=== PATIENT | male | born 1955 | race Caucasian/White ===

== ENCOUNTER 2016-11-15 13:05 | Inpatient (IN) | payer OTHER, SELFPAY ==
--- NOTE | ~2016-11-15 | DS ---
Discharge Summary [facility] [address] [facility] [place]. [address] NAME: PATY LOPEZ : 53 STATUS : ADM IN PAT#: [id number] AGE: 61 ADM/REG DATE : 11/15/16 MR#: [id number] REPORT SERV DATE: 11/18/16 DICTATED BY: ISAAC LIVINGSTON DATE: 11/18/16 REPORT STATUS : Draft TRANSCRIBED BY: MODL DATE: 11/18/16 ADMISSION DATE: 11/15/2016 DISCHARGE DATE: 11/18/2016 CHIEF COMPLAINT: Fever and chills. DISCHARGING DIAGNOSES: 1. Abdominal wall cellulitis likely due to strep. 2. Sepsis due to abdominal wall cellulitis. 3. CKD stage 2/3. 4. Obstructive sleep apnea. 5. Morbid obesity with BMI of 56. 6. History of chronic lymphedema with lower extremity cellulitis with history of methicillin-resistant Staphylococcus aureus. 7. Superficial thrombophlebitis. 8. Chronic back pain. HISTORY OF PRESENT ILLNESS: Please see full H and P by Dr. Stevens for details regarding initial presentation. HOSPITAL COURSE: 1. Abdominal wall cellulitis with sepsis. The patient was admitted to the hospital, seen by Infectious Disease. Antibiotics changed to Ancef and by hospital day #3, the cellulitis had completely resolved. He was treated with Ancef for an additional day and will go home with Duricef an additional 4 days after discharge. He will follow up with primary care and Dr. Chaudhary at previous outpatient regimen. Resume previous suppressive penicillin after completion of Duricef. 2. Chronic kidney disease, this is grossly stable this admission with a creatinine of 1.4 which is slightly up from his baseline. Lisinopril was held here, can resume as an outpatient. Follow up with primary care. 3. Obstructive sleep apnea with morbid obesity. Continue CPAP. 4. Thrombocytopenia, this is mild, likely related to infection. Currently trending up at platelet count of 95. Recommend outpatient followup with primary care to ensure that this is resolving. Again suspect this is due to infection as platelets were 103 on admission. 5. Hypomagnesemia. This was repleted per protocol. Follow up with primary care. 6. Diabetes. Continue outpatient regimen. Last A1c on 11/16/2016, was 8.8. Recommend to follow up with primary care for further management of better glucose control. LABORATORY DATA: New laboratory data prior to discharge, last WBC 4.7, hemoglobin 13.5, and platelet count of 95. BMP: Serum sodium 140, potassium 4, chloride 107, carbon dioxide 26, BUN 19, creatinine 1.41, magnesium 1.5, and calcium 8.7. DISPOSITION: Home. DISCHARGE MEDICATIONS: Are the same as admission with the addition of Duricef 1 g p.o. Discharge Summary [address] [address] NAME: PATY LOPEZ : 53 STATUS : ADM IN PAT#: [id number] AGE: 61 ADM/REG DATE : 11/15/16 MR#: [id number] REPORT SERV DATE: 11/18/16 DICTATED BY: ISAAC LIVINGSTON DATE: 11/18/16 REPORT STATUS : Draft TRANSCRIBED BY: MARIANA DATE: 11/18/16 b.i.d. for 4 additional days. Time spent on discharge greater than 30 minutes. DNK/MODL Isaac Livingston MD / [id number] CC: MD Rohith Marques M.D.
--- NOTE | ~2016-11-15 | HP ---
History And Physical [address] [place]. [address] NAME: PATY LOPEZ : 53 STATUS : ADM IN [facility]#: [id number] AGE: 61 ADM/REG DATE : 11/15/16 MR#: [id number] REPORT SERV DATE: 11/15/16 DICTATED BY: FRANSISCO BELL DATE: 11/15/16 REPORT STATUS : Draft TRANSCRIBED BY: MARIANA DATE: 11/15/16 DATE OF ADMISSION: 11/15/2016 CHIEF COMPLAINT: Fever or chills. HISTORY OF PRESENT ILLNESS: This is a 61 years old male with a past medical history of an MRSA and with lower extremity cellulitis in the past and followed by Dr. Lang Chaudhary, Infectious Diseases specialist and currently on suppressive/prophylactic medication with penicillin. The patient states that he has had some intermittent abdominal cellulitis and was given an extra antibiotic as an outpatient by Dr. Chaudhary approximately two to three weeks ago, which resolved. However, this morning, the patient developed acute onset of fever and chills with myalgias. He was seen by Dr. Fowler, his sales merchandiser, this morning and was referred to the emergency department. He also has some mild shortness of breath with cough. Positive sore throat. Denies any nasal congestion. No chest pain. The only sick contact was a grandchild, who had a sinus infection. Upon arrival to the ER, he was seen by Dr. Matt and found to have abdominal erythema with increased warmth. His influenza swab was initially negative. He was given a dose of IV vancomycin and the hospitalist was called to admit the patient into the hospital. REVIEW OF SYSTEMS: Please refer to HPI. PAST MEDICAL HISTORY: Lower extremity cellulitis, recurrent; history of MRSA; venous stasis dermatitis; type 2 diabetes; lymphedema; hypertension; morbid obesity; superficial thrombophlebitis; obstructive sleep apnea; chronic back pain; and a kidney nodule per patient. PAST SURGICAL HISTORY: Right heel and left heel surgery. FAMILY HISTORY: Hypertension, type 2 diabetes. SOCIAL HISTORY: Quit tobacco abuse. No illicit drugs. is currently at bedside. ALLERGIES: SULFA, CODEINE, METHADONE. HOME MEDICATIONS: Albuterol p.r.n., ascorbic acid p.o. daily, baclofen 20 mg p.o. t.i.d., benazepril 5 mg p.o. daily, Symbicort 160/4.5 two puffs inhaled daily, Bumex 2 mg p.o. daily p.r.n., FiberCon two tabs p.o. daily, cholecalciferol 2000 units p.o. daily, vitamin B12 1000 mcg sublingual daily, [place] 10/325 one tab p.o. four times a day scheduled, Humalog 75/25 60 units subcu with breakfast and supper and 40 units subcu with lunch, Prilosec 20 mg p.o. b.i.d., penicillin VK 500 mg p.o. b.i.d., Phenergan 25 mg p.o. q.6 hours p.r.n., Requip 0.5 mg p.o. at bedtime p.r.n., stool softener, Zocor 10 mg p.o. at bedtime, senna two tabs p.o. b.i.d. PHYSICAL EXAMINATION: VITAL SIGNS: Temperature 101, blood pressure 129/47 and repeat check with a blood pressure History And Physical [address] [address] NAME: PATY LOPEZ : 53 STATUS : ADM IN [facility]#: [id number] AGE: 61 ADM/REG DATE : 11/15/16 MR#: [id number] REPORT SERV DATE: 11/15/16 DICTATED BY: FRANSISCO BELL DATE: 11/15/16 REPORT STATUS : Draft TRANSCRIBED BY: MODL DATE: 11/15/16 of 131/64 with a pulse of 92, respiration of 18, and saturating 95%. GENERAL: The patient is alert and oriented, but restless due to discomfort. Morbid obesity. NECK: Supple. HEENT: Pupils equal, round, and reactive to light. Extraocular muscles are intact with mild bilateral conjunctival redness. No drainage. Dry mucous membranes. CARDIOVASCULAR: S1, S2. Regular rate and rhythm. No rubs, gallops. No JVD. RESPIRATORY: Clear to auscultation bilaterally. No wheezes or crackles. No signs of tachypnea. ABDOMEN: Positive bowel sounds. Soft, obese with erythema of the abdomen below the umbilicus from anterior tracking posterior with increased warmth at the site. EXTREMITIES: Lower extremities with some lymphedema. No appreciated erythema of the lower extremities. NEURO: Cranial nerves 2 through 12 grossly intact. Moves all four extremities. No neuro focal deficits. IMAGING: Chest x-ray with no acute infiltrate. LABORATORY DATA: Sodium 143, potassium 4.3 with a chloride of 109, bicarb of 26, BUN 15, creatinine of 1.47 with a glucose of 227. Total bilirubin of 1.1, alkaline phosphatase 114, ALT of 40, AST of 50. Troponin less than 0.02. White count of 8.9 with a hemoglobin of 14.2, platelet count 103. Influenza swab negative. UA negative. ASSESSMENT AND PLAN: 1. Systemic inflammatory response syndrome. 2. Cellulitis. 3. Acute kidney injury. 4. History of type 2 diabetes. 5. History of obstructive sleep apnea. 6. History of hypertension. 7. Morbid obesity. I will follow up with pending blood cultures. Also, we will continue with IV antibiotics considering the patient has a history of recurrent MRSA infections in the past. We will continue with IV vancomycin, however, also must consider a possible underlying strep infection, therefore we will continue with Rocephin as well. Also, we will check strep swab and repeat influenza swab in case of a poor outflow application of testing. Also we will continue with gentle hydration and follow up with pending labs, and also, we will consult Dr. Lang Chaudhary who is well familiar with this patient. [facility]/MARIANA Fransisco Bell M.D. History And Physical [address] [address] NAME: PATY LOPEZ : 53 STATUS : ADM IN [facility]#: [id number] AGE: 61 ADM/REG DATE : 11/15/16 MR#: [id number] REPORT SERV DATE: 11/15/16 DICTATED BY: FRANSISCO BELL DATE: 11/15/16 REPORT STATUS : Draft TRANSCRIBED BY: PRASAD DATE: 11/15/16 / [id number] CC: Shin Brooks M.D. Mark Anderson, M.D. Riccardo Fowler M.D.
[2016-11-15 11:43] LABS: BASOPHILS 0.1 %; BASOPHILS ABSOLUTE 0.01 10/3/uL (0.0-0.16); EOSINOPHILS 0.3 %; EOSINOPHILS ABSOLUTE 0.03 10/3/uL (0.0-0.53); IMMATURE GRANULOCYTES 0.2 %; IMMATURE GRANULOCYTES ABSOLUTE 0.02 10/3/uL (0.0-0.11); LYMPHOCYTES 3.3 %; LYMPHOCYTES ABSOLUTE 0.29 10/3/uL (0.67-4.30); MEAN CORPUS HGB CONC 34.1 g/dL (32.0-36.0); MEAN PLATELET VOLUME 10.4 fL (9.2-13.0); MONOCYTES 4.4 %; MONOCYTES ABSOLUTE 0.39 10/3/uL (0.21-1.20); NEUTROPHILS 91.7 %; NEUTROPHILS ABSOLUTE 8.11 10/3/uL (2.02-8.40); RBC DISTRIBUTION WIDTH 15.9 % (12.0-16.0)
[2016-11-15 11:46] LABS: ER CBC TAT 0 Hrs 09 Mins; HEMATOCRIT 41.6 % (40.0-51.0); HEMOGLOBIN 14.2 g/dL (13.6-17.8); MANUAL DIFF NO %; MEAN CORPUSCULAR VOLUME 87.8 fL (80-100); PLATELET COUNT 103 10/3/uL (150-400); RED CELL COUNT 4.74 10/6/uL (4.7-6.1); WHITE BLOOD CELLS 8.9 10/3/uL (4.5-10.5)
[2016-11-15 11:57] LABS: BUN (BLOOD UREA NITROGEN) 15 MG/DL (6-23); CALCIUM, SERUM 9.1 MG/DL (8.5-10.4); CHLORIDE, SERUM 109 MMOL/L (96-112); CO2 (CARBON DIOXIDE) 26 MMOL/L (24-34); CREATININE 1.47 MG/DL (0.70-1.30); GFR AFRICAN AMERICAN 58 ML/MIN (>=60); GFR NON AFRICAN AMERICAN 50 ML/MIN (>=60); POTASSIUM, SERUM 4.3 MMOL/L (3.5-5.3); SGOT(AST) 50 U/L (5-40); SGPT(ALT) 40 U/L (5-65); SODIUM, SERUM 143 MMOL/L (135-148); TOTAL BILIRUBIN 1.1 MG/DL (0-1.2); TOTAL PROTEIN 6.7 G/DL (6.0-8.5)
[2016-11-15 11:58] LABS: A/G RATIO 0.8 (0.7-1.9); ALKALINE PHOSPHATASE 114 U/L (45-117); GLOBULIN 3.7 G/DL (2.5-4.1); GLUCOSE, SERUM 227 MG/DL (60-99)
[2016-11-15 11:59] LABS: LACTATE 1.7 MMOL/L (0.3-2.4)
[2016-11-15 12:21] LABS: INFLUENZA A SCREEN NEGATIVE (NEGATIVE); INFLUENZA B SCREEN NEGATIVE (NEGATIVE)
[2016-11-15 12:30] LABS: ASCORBIC ACID (UR NOT ORDER) NEG (NEG); BILIRUBIN, URINE NEGATIVE (NEG); ER URINALYSIS TAT 0 Hrs 15 Mins; KETONE, URINE NEGATIVE (NEG); LEUKOCYTE ESTERASE(NOT OR NEG (NEG); NITRITE (URINE) NEG (NEG); WBC (NOT ORDERED) (RFLEX) < 1 (0-5)
[~2016-11-15 13:05] MED LIST: BACLOFEN20 MG PO; BREO ELLIPTA INH; BUM2 PO; DIABETA5 PO; DSS PO; DURICEF PO; FIBER CHOICE PO; HUMALOGMIX SC; K500 PO; L80 PO; LOTE5 PO; NORCO1 TAB PO; OCEAN NAS; P20 PO; PERI-COLACE1 TAB PO; PR25 PO; PRILO PO; PROAIR HFA INH; PROAIRRESP INH; REQUIP25 PO; REQUIP5 PO; TRESIBA INSULIN SC; VICTOZA18 MG/3 ML SC; VITAMIN D2000 UNIT PO; VITC500 PO; Z-PAK PO; ZOCOR10 PO; [UNRECOGNIZED DRUG - OTHER] PO
[2016-11-15] MEDS ORDERED: HUMALOGMIX SC ×2 (13:54)
[2016-11-15] MEDS ORDERED: NORCO1 TAB PO (13:55)
[2016-11-15] MEDS ORDERED: BACLOFEN20 MG PO (13:55)
[2016-11-15] MEDS ORDERED: PRILO PO (13:55)
[2016-11-15] MEDS ORDERED: ZOCOR10 PO (13:55)
[2016-11-15] MEDS ORDERED: LOTE5 PO (13:58)
[2016-11-15] MEDS ORDERED: BUM2 PO (13:58)
[2016-11-15] MEDS ORDERED: PR25 PO (13:59)
[2016-11-15] MEDS ORDERED: SYMBICORT 160/41 INH INH (13:59)
[2016-11-15] MEDS ORDERED: PROAIRRESP INH (13:59)
[2016-11-15] MEDS ORDERED: FIBERCON PO (14:01)
[2016-11-15] MEDS ORDERED: REQUIP5 PO (14:01)
[2016-11-15] MEDS ORDERED: PERI-COLACE1 TAB PO (14:02)
[2016-11-15] MEDS ORDERED: VITAMIN D31000 UNIT PO (14:03)
[2016-11-15] MEDS ORDERED: VITC500 PO (14:03)
[2016-11-15] MEDS ORDERED: STOOL SOFTENER OTC PO (14:03)
[2016-11-15] MEDS ORDERED: VITAMIN B-121000 MC1 SL (14:03)
[2016-11-15] MEDS ORDERED: PENICILLN VK500 MG PO (14:09)
[2016-11-15 15:47] LABS: PROCALCITONIN 0.17 ng/mL (<0.5)
[2016-11-15 17:34] LABS: INFLUENZA A SCREEN NEGATIVE (NEGATIVE); INFLUENZA B SCREEN NEGATIVE (NEGATIVE)
[2016-11-16 06:18] LABS: A/G RATIO 0.8 (0.7-1.9); ALBUMIN 2.6 G/DL (3.5-5.0); ALKALINE PHOSPHATASE 85 U/L (45-117); BASOPHILS 0.1 %; BASOPHILS ABSOLUTE 0.01 10/3/uL (0.0-0.16); BUN (BLOOD UREA NITROGEN) 20 MG/DL (6-23); CALCIUM, SERUM 8.5 MG/DL (8.5-10.4); CHLORIDE, SERUM 108 MMOL/L (96-112); CO2 (CARBON DIOXIDE) 22 MMOL/L (24-34); CREATININE 1.43 MG/DL (0.70-1.30); EOSINOPHILS 0.1 %; EOSINOPHILS ABSOLUTE 0.01 10/3/uL (0.0-0.53); GFR AFRICAN AMERICAN 60 ML/MIN (>=60); GFR NON AFRICAN AMERICAN 52 ML/MIN (>=60); GLOBULIN 3.2 G/DL (2.5-4.1); GLUCOSE, SERUM 145 MG/DL (60-99); HEMATOCRIT 40.2 % (40.0-51.0); HEMOGLOBIN 13.6 g/dL (13.6-17.8); IMMATURE GRANULOCYTES 0.4 %; IMMATURE GRANULOCYTES ABSOLUTE 0.04 10/3/uL (0.0-0.11); LYMPHOCYTES 6.4 %; LYMPHOCYTES ABSOLUTE 0.62 10/3/uL (0.67-4.30); MEAN CORPUS HGB CONC 33.8 g/dL (32.0-36.0); MEAN CORPUSCULAR HEMOGLOB 29.6 pg (26.0-34.0); MEAN CORPUSCULAR VOLUME 87.6 fL (80-100); MEAN PLATELET VOLUME 10.2 fL (9.2-13.0); MONOCYTES 5.4 %; MONOCYTES ABSOLUTE 0.52 10/3/uL (0.21-1.20); NEUTROPHILS 87.6 %; NEUTROPHILS ABSOLUTE 8.46 10/3/uL (2.02-8.40); PLATELET COUNT 86 10/3/uL (150-400); POTASSIUM, SERUM 4.1 MMOL/L (3.5-5.3); RBC DISTRIBUTION WIDTH 16.4 % (12.0-16.0); RED CELL COUNT 4.59 10/6/uL (4.7-6.1); SGOT(AST) 43 U/L (5-40); SGPT(ALT) 35 U/L (5-65); SODIUM, SERUM 142 MMOL/L (135-148); TOTAL PROTEIN 5.8 G/DL (6.0-8.5); WHITE BLOOD CELLS 9.7 10/3/uL (4.5-10.5)
[2016-11-16 06:22] LABS: MANUAL DIFF NO %
[2016-11-16 14:13] LABS: EB VCA AB IGG Positive (Negative); EB VCA AB IGM Negative (Negative); EBV NUCLEAR AB IGG Positive (Negative)
[2016-11-17 07:39] LABS: BASOPHILS 0.2 %; BASOPHILS ABSOLUTE 0.01 10/3/uL (0.0-0.16); EOSINOPHILS 2.8 %; EOSINOPHILS ABSOLUTE 0.13 10/3/uL (0.0-0.53); HEMATOCRIT 40.8 % (40.0-51.0); HEMOGLOBIN 13.5 g/dL (13.6-17.8); IMMATURE GRANULOCYTES 0.2 %; IMMATURE GRANULOCYTES ABSOLUTE 0.01 10/3/uL (0.0-0.11); LYMPHOCYTES 17.4 %; LYMPHOCYTES ABSOLUTE 0.81 10/3/uL (0.67-4.30); MEAN CORPUS HGB CONC 33.1 g/dL (32.0-36.0); MEAN CORPUSCULAR HEMOGLOB 29.4 pg (26.0-34.0); MEAN CORPUSCULAR VOLUME 88.9 fL (80-100); MEAN PLATELET VOLUME 10.4 fL (9.2-13.0); MONOCYTES 13.7 %; MONOCYTES ABSOLUTE 0.64 10/3/uL (0.21-1.20); NEUTROPHILS 65.7 %; NEUTROPHILS ABSOLUTE 3.06 10/3/uL (2.02-8.40); PLATELET COUNT 88 10/3/uL (150-400); RBC DISTRIBUTION WIDTH 16.6 % (12.0-16.0); RED CELL COUNT 4.59 10/6/uL (4.7-6.1)
[2016-11-17 07:40] LABS: MANUAL DIFF NO %; WHITE BLOOD CELLS 4.7 10/3/uL (4.5-10.5)
[2016-11-17 07:54] LABS: BUN (BLOOD UREA NITROGEN) 20 MG/DL (6-23); CALCIUM, SERUM 8.6 MG/DL (8.5-10.4); CHLORIDE, SERUM 109 MMOL/L (96-112); CO2 (CARBON DIOXIDE) 23 MMOL/L (24-34); CREATININE 1.44 MG/DL (0.70-1.30); GFR AFRICAN AMERICAN 60 ML/MIN (>=60); GFR NON AFRICAN AMERICAN 52 ML/MIN (>=60); GLUCOSE, SERUM 145 MG/DL (60-99); POTASSIUM, SERUM 4.6 MMOL/L (3.5-5.3); SODIUM, SERUM 142 MMOL/L (135-148)
[2016-11-18 07:47] LABS: BUN (BLOOD UREA NITROGEN) 19 MG/DL (6-23); CALCIUM, SERUM 8.7 MG/DL (8.5-10.4); CHLORIDE, SERUM 107 MMOL/L (96-112); CO2 (CARBON DIOXIDE) 26 MMOL/L (24-34); CREATININE 1.41 MG/DL (0.70-1.30); GFR AFRICAN AMERICAN 61 ML/MIN (>=60); GFR NON AFRICAN AMERICAN 53 ML/MIN (>=60); GLUCOSE, SERUM 163 MG/DL (60-99); SODIUM, SERUM 140 MMOL/L (135-148)
[2016-11-18] MEDS ORDERED: DURICEF PO (16:24)
== END 2016-11-18 18:24 | disposition home or self-care (01) | DRG 872 ==
LOC: ER 13:05 → 4SO 15:01
PROVIDERS: Emergency Medicine; Internal Medicine
DX: A40.9 Streptococcal sepsis, unspecified (principal); E11.22 Type 2 diabetes mellitus with diabetic chronic kidney disease; N17.9 Acute kidney failure, unspecified; N18.3 Chronic kidney disease, stage 3 (moderate); Z68.43 Body mass index [BMI] 50.0-59.9, adult; L03.311 Cellulitis of abdominal wall; Z86.14 Personal history of Methicillin resistant Staphylococcus aureus infection; G47.33 Obstructive sleep apnea (adult) (pediatric); G89.29 Other chronic pain; M54.9 Dorsalgia, unspecified; Z87.891 Personal history of nicotine dependence; Z88.2 Allergy status to sulfonamides; Z88.5 Allergy status to narcotic agent; Z79.891 Long term (current) use of opiate analgesic; Z79.4 Long term (current) use of insulin; Z79.51 Long term (current) use of inhaled steroids; I12.9 Hypertensive chronic kidney disease with stage 1 through stage 4 chronic kidney disease, or unspecified chronic kidney disease; E66.01 Morbid (severe) obesity due to excess calories; I89.0 Lymphedema, not elsewhere classified; E83.42 Hypomagnesemia; I87.8 Other specified disorders of veins; R65.20 Severe sepsis without septic shock
CPT/HCPCS: 71010; 80048; 80053; 81001; 82962; 83036; 83605; 83690; 83735; 84145; 85025; 85049; 86664; 86665; 86665-59; 87040; 87070; 87804; 87880; 94640; 99285; A9270-GY; J0690; J3370; J3475